=== PATIENT | female | born 1985 | race Caucasian/White ===

== ENCOUNTER 2022-03-18 09:01 | Outpatient (CLI) | payer OTHER | END 2022-03-18 12:09 | disposition home or self-care (01) | LOC: PRENATAL 09:01 | PROVIDERS: ATTEND Obstetrics & Gynecology Maternal & Fetal Medicine | DX: O35.9XX0 Maternal care for (suspected) fetal abnormality and damage, unspecified, not applicable or unspecified (principal); O09.819 Supervision of pregnancy resulting from assisted reproductive technology, unspecified trimester ==

== ENCOUNTER 2022-04-21 12:09 | Outpatient (CLI) | payer OTHER | END 2022-04-21 13:50 | disposition home or self-care (01) | LOC: PRENATAL 12:09 | PROVIDERS: ATTEND Obstetrics & Gynecology Maternal & Fetal Medicine | DX: O35.9XX0 Maternal care for (suspected) fetal abnormality and damage, unspecified, not applicable or unspecified (principal); O09.819 Supervision of pregnancy resulting from assisted reproductive technology, unspecified trimester; Z3A.27 27 weeks gestation of pregnancy ==